=== PATIENT | female | born 1985 | race Two or more races ===

== ENCOUNTER 2020-06-02 17:42 | Inpatient (IN) | payer MEDICAID ==
[~2020-06-02] VITALS: Ht 61 cm; Wt 86.2 kg
[2020-06-02] MEDS ORDERED: levETIRAcetam 500mg/NS100ml 100 ML IVPB ONE (18:00)
[2020-06-02] MEDS ORDERED: levETIRAcetam 1,000mg/NS100ml 100 ML IVPB ONE (18:00)
--- NOTE | 2020-06-02 18:01 | Emergency Room Report ---
History of Present Illness General Chief Complaint: Seizure Source: Patient Present Illness HPI Disclaimer: Please note that this report is being documented using DRAGON technology. This can lead to erroneous entry secondary to incorrect interpretation by the dictating instrument. HPI: 35-year-old female history of seizure disorder status post WREATH MAKER shunt currently on Keppra presents for increased seizure activity. The patient states she had a brief generalized tonic-clonic seizure with a fall from standing prior to arrival. Brought in by her friend. She has been having increased seizures over the past 3 days. Her shunt was adjusted by her neurosurgeons last month after a CT showed increased intracranial pressure. She has been unable to take her Keppra or Klonopin for 3 days due to nausea. Reports headache and some blurred vision. Denies chest pain or palpitations. Denies nausea or vomiting or diarrhea. Denies fever or chills. 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 EOMI. no obvious hematomas or lacerations. Palpable shunt over the right side of the head and neck. Cardiovascular tachycardic Resp: Normal work of breathing. No cough, wheezing or crackles appreciated Abdomen: Abdomen is soft, nondistended. Nontender Skin: Intact. No abrasions, laceration or rash over the exposed skin MSK: Normal tone and bulk. Moving all extremities. No obvious deformity. Neuro: Awake and alert. Mentating appropriately. Tremulous in the extremities. Medical Decision Making Diagnostic Impression: Primary Impression: Seizure disorder Additional Impressions: Unable to take medication Headache ER Course Is a 35-year-old female history of seizure disorder status post WREATH MAKER shunt presents for evaluation of increasing seizures and headache after a fall from standing. Ventricles are decompressed and shunt appears to be in place. Labs are within normal limits. The patient complained of significant headache that was unaided by Tylenol or morphine. She received Benadryl Dilaudid which improved her headache. Benadryl was given for itching. Patient states she is allergic to NSAIDs, Reglan, Compazine. She also states she tried IV infusions of caffeine before which did not help. She takes morphine at home though cannot obtain records through [facility]. No prior visits at this hospital either. Because the patient is normally take her Keppra for the past 3 days will admit for further IV infusions and neurology consult that she no longer has a neurologist. Admitted to Dr. Corbin who is on panel today. Laboratory Tests Test 06/02/20 18:18 06/02/20 20:31 White Blood Count 4.6 K/UL (4.8-10.8) L Red Blood Count 3.98 M/UL (4.20-5.40) L Hemoglobin 8.2 G/DL (12.0-16.0) L Hematocrit 27.5 % (37.0-47.0) L Mean Corpuscular Volume 69 FL (80-99) L Mean Corpuscular Hemoglobin 20.5 PG (27.0-31.0) L Mean Corpuscular Hemoglobin Concent 29.7 G/DL (32.0-36.0) L Red Cell Distribution Width 17.9 % (11.6-14.8) H Platelet Count 320 K/UL (150-450) Mean Platelet Volume 7.5 FL (6.5-10.1) Neutrophils (%) (Auto) 59.9 % (45.0-75.0) Lymphocytes (%) (Auto) 30.1 % (20.0-45.0) Monocytes (%) (Auto) 7.2 % (1.0-10.0) Eosinophils (%) (Auto) 1.8 % (0.0-3.0) Basophils (%) (Auto) 1.1 % (0.0-2.0) Sodium Level 141 MMOL/L (136-145) Potassium Level 3.9 MMOL/L (3.5-5.1) Chloride Level 106 MMOL/L (98-107) Carbon Dioxide Level 26 MMOL/L (21-32) Anion Gap 9 mmol/L (5-15) Blood Urea Nitrogen 22 mg/dL (7-18) H Creatinine 0.7 MG/DL (0.55-1.30) Estimated Glomerular Filtration Rate > 60 mL/min (>60) Glucose Level 84 MG/DL (74-106) Calcium Level 8.8 MG/DL (8.5-10.1) Total Bilirubin 0.3 MG/DL (0.2-1.0) Aspartate Amino Transferase (AST) 15 U/L (15-37) Alanine Aminotransferase (ALT) 16 U/L (12-78) Alkaline Phosphatase 44 U/L (46-116) L Total Protein 7.3 G/DL (6.4-8.2) Albumin 3.6 G/DL (3.4-5.0) Globulin 3.7 g/dL Albumin/Globulin Ratio 1.0 (1.0-2.7) Serum Alcohol < 3 mg/dL Urine Color Pale yellow Urine Appearance Clear Urine pH 6.5 (4.5-8.0) Urine Specific [place] 1.005 (1.005-1.035) Urine Protein Negative (NEGATIVE) Urine Glucose (UA) Negative (NEGATIVE) Urine Ketones Negative (NEGATIVE) Urine Blood Negative (NEGATIVE) Urine Nitrite Negative (NEGATIVE) Urine Bilirubin Negative (NEGATIVE) Urine Urobilinogen Normal MG/DL (0.0-1.0) Urine Leukocyte Esterase Negative (NEGATIVE) Urine HCG, Qualitative Pending Urine Opiates Screen Pending Urine Barbiturates Screen Pending Phencyclidine (PCP) Screen Pending Urine Amphetamines Screen Pending Urine Benzodiazepines Screen Pending Urine Cocaine Screen Pending Urine Marijuana (THC) Screen Pending EKG Diagnostic Results Troponin ordered: Yes When was troponin ordered?: Jun 02, 2020 EKG Time: 17:59 Rate: normal Rhythm: NSR ST Segments: no acute changes Other Impression Sinus rhythm, normal axis, normal intervals, no ST segment changes Rhythm Strip Diag. Results Rhythm Strip Time: 17:59 EP Interpretation: yes Rate: 90s Rhythm: NSR, no PVC's, no ectopy Last Vital Signs Date Time Temp Pulse Resp B/P (MAP) Pulse Ox O2 Delivery O2 Flow Rate FiO2 06/02/20 17:45 98.4 111 20 103/69 (80) 100 Room Air Disposition: ADMITTED INPATIENT Condition: Serious Indio Benson MD Jun 02, 2020 18:01
[2020-06-02] MEDS ORDERED: Acetaminophen 500mg (ES) tab ORAL ONE (18:30)
[2020-06-02 18:33] LABS: BASOPHILS % (AUTO) 1.1 % (0.0-2.0); EOSINOPHILS % (AUTO) 1.8 % (0.0-3.0); HEMATOCRIT 27.5 % (37.0-47.0); HEMOGLOBIN 8.2 G/DL (12.0-16.0); LYMPHOCYTES % (AUTO) 30.1 % (20.0-45.0); MEAN CORPUSCULAR VOLUME 69 FL (80-99); MONOCYTES % (AUTO) 7.2 % (1.0-10.0); NEUTROPHILS % (AUTO) 59.9 % (45.0-75.0); PLATELET COUNT 320 K/UL (150-450); RED BLOOD COUNT 3.98 M/UL (4.20-5.40); RED CELL DISTRIBUTION WIDTH 17.9 % (11.6-14.8); WHITE BLOOD COUNT 4.6 K/UL (4.8-10.8)
[2020-06-02 18:43] LABS: ANION GAP 9 mmol/L (5-15); BLOOD UREA NITROGEN 22 mg/dL (7-18); CALCIUM 8.8 MG/DL (8.5-10.1); CARBON DIOXIDE 26 MMOL/L (21-32); CHLORIDE 106 MMOL/L (98-107); CREATININE 0.7 MG/DL (0.55-1.30); POTASSIUM 3.9 MMOL/L (3.5-5.1); SODIUM 141 MMOL/L (136-145)
[2020-06-02 18:47] LABS: ALANINE AMINOTRANSFERASE 16 U/L (12-78); ALBUMIN 3.6 G/DL (3.4-5.0); ALKALINE PHOSPHATASE 44 U/L (46-116); ASPARTATE AMINO TRANSFERASE 15 U/L (15-37); BILIRUBIN,TOTAL 0.3 MG/DL (0.2-1.0)
--- NOTE | 2020-06-02 18:58 | Diagnostic Imaging Report ---
EXAM: CT Head Without Intravenous Contrast CLINICAL HISTORY: SZ TECHNIQUE: Axial computed tomography images of the head/brain without intravenous contrast. CTDI is 53.40 mGy and DLP is 1018.80 mGy-cm. One or more of the following dose reduction techniques were used: automated exposure control, adjustment of the mA and/or kV according to patient size, use of iterative reconstruction technique. COMPARISON: No relevant prior studies available. FINDINGS: Brain: Punctate calcification in the right frontal lobe. No hemorrhage. No significant white matter disease. Ventricles: Calcification in the choroid plexus in the third ventricle and lateral ventricles. Bones/joints: Unremarkable. No acute fracture. Soft tissues: Unremarkable. Sinuses: Unremarkable as visualized. No acute sinusitis. Mastoid air cells: Unremarkable as visualized. No mastoid effusion. Tubes, lines and devices: Right parietal ventriculostomy catheter tip along the frontal horn right lateral ventricle. Ventricles are decompressed. IMPRESSION: 1. No acute intracranial pathology. 2. Right parietal ventriculostomy catheter tip along the frontal horn right lateral ventricle. Ventricles are decompressed.
[2020-06-02] MEDS ORDERED: Morphine Sulfate 2mg/ml Inj(IV/IM USE ONLY) IVP ONE (19:00)
--- NOTE | 2020-06-02 19:00 | NUR ---
ED Nurse Note: patient came in with complaints of increased pressure and pain on her right side of the head, pat is Aox4, ambulatory, hypotensive which she says is her normal, vitor has complaints of pain MD ordered medication
[2020-06-02] MEDS ORDERED: DiphenhydrAMINE 50mg/ml Inj IVP ONE ×2 (19:15→21:15)
--- NOTE | 2020-06-02 19:15 | NUR ---
ED Nurse Note: pt arrived for seizures x3 days. pt states nausea, unable to keep daily keppra down. pt states seizure since 19 after meningitis dx, pt had R ROTOFORMER BACKTENDER shunt placed years ago, recently adjusted pressure and ever since has felt pain & nausea. pt A&Ox4, slow movements, guarding. labs sent, CT done. pt medicated.
[2020-06-02 19:18] VITALS: BP 105/55
[2020-06-02] MEDS ORDERED: Haloperidol Lactate 5 MG in D5W 55 ML IVPB ONE (20:15)
[2020-06-02] MEDS ORDERED: Hydromorphone 0.5mg/0.5ml inj IVP ONE (20:30)
[2020-06-02] MEDS ORDERED: HYDROmorphone 1mg/ml Carpuject IVP ONE ×2 (20:30→21:00)
[2020-06-02 20:56] LABS: APPEARANCE,URINE CLEAR; BILIRUBIN, URINE NEGATIVE (NEGATIVE); COLOR,URINE PALE YELLOW; GLUCOSE, URINE (UA) NEGATIVE (NEGATIVE); KETONES,URINE NEGATIVE (NEGATIVE); LEUKOCYTE ESTERASE ,URINE NEGATIVE (NEGATIVE); NITRITE,URINE NEGATIVE (NEGATIVE); PH,URINE 6.5 (4.5-8.0); PROTEIN,URINE NEGATIVE (NEGATIVE); UROBILINOGEN,URINE NORMAL MG/DL (0.0-1.0)
[2020-06-02] MEDS ORDERED: KEPPRA1000 MG ORAL (21:28)
[2020-06-02] MEDS ORDERED: CYMBALTA60 MG ORAL (21:28)
[2020-06-02] MEDS ORDERED: KLONOPIN1 MG ORAL (21:28)
--- NOTE | 2020-06-02 22:40 | NUR ---
TRANSFER TO FLOOR: Patient transferred to 2nd floor tele as ordered, per MD. Belongings with patient.
--- NOTE | 2020-06-02 22:44 | NUR ---
NURSE NOTES: Pt. received from MANE Fletcher. Pt. ambulatory with steady gait, AAOx4, on room air, breathing even and unlabored on room air, no indications of respiratory distress, complaints of severe headache, and generalized pain 10/10. IV noted left AC 20g intact and patent and left EJ 20g intact and patent, saline locked. Shunt right parietal lobe palpated, pt. with complaints of pain and swelling at site. 97.7 - 104 sinus tachy on monitor - 18 RR - 110/58 - 99% RA - 10/10 pain. Pt oriented to room and hospital policies, belongings checked and accounted for against ED belongings list. Bed low and locked, side rails x2 up and padded, suction and o2 at bedside, and call light in reach. Will follow up with primary MD for admission orders.
--- NOTE | 2020-06-02 23:04 | NUR ---
NURSE NOTES: Dr. Corbin called for admission orders, anticipating return call.
[2020-06-02 23:33] VITALS: BP 90/58
--- NOTE | 2020-06-02 23:34 | NUR ---
NURSE NOTES: Message left for Dr. Corbin following up for admission orders. Pt. experiencing 10/10 pain related to seizures and fall at home, relayed in message to Dr. Corbin. Awaiting return call and admission orders. Charge nurse aware.
--- NOTE | 2020-06-02 23:52 | NUR ---
NURSE NOTES: Received admission orders from Dr. Gallegos, will carry out plan of care.
--- NOTE | 2020-06-03 00:10 | NUR ---
NURSE NOTES: Pt. with multiple complaints of pain 01/31 with headaches and generalized body pain, no relief. Discussed with pt. plan of care according to primary MD, including pain intervention orders. Pt. unhappy with not receiving Dilaudid for pain interventions and stated "Well then I'm leaving." Attempted to educate pt. on rational for orders per the MD and pt. refusing to listen. Pt. began packing up belongings and removing wash barrel leader. Discussed risks of leaving in current condition and potential for serious bodily harm. Pt. continued to pack up. Charge nurse alerted and MD notified. Brought AMA form and pt. refused to sign. D/c'd IV access, monitor removed, and ID band removed. Pt. escorted outside. Pt. AAOx4, ambulatory with steady gait, no signs of respiratory distress, no acute complaints of chest pain. Spoke with Dr. Corbin on the phone and updated on pt.s leaving AMA.
--- NOTE | 2020-06-04 00:14 | History and Physical Report ---
DATE OF ADMISSION: 06/02/2020 Please let this serve as H and P. The patient left a couple of hours after admission against medical advice, did not wait to be seen by any doctor, so obviously we could not do any History and Physical because the patient left AMA a couple of hours from the time of admission. The patient was originally admitted for seizures and neurologist was consulted, but the patient was insisting on getting some pain medication that, I told the nurse, will lower the seizure threshold and I did not feel comfortable giving it to the patient. The patient left against medical advice without waiting to be seen by any doctor, so we cannot dictate H and P, and let this serve as H and P. Monster Corbin M.D. DR: SUMEET JOB#: [id number] CC:
--- NOTE | 2020-06-05 14:57 | Discharge Summary ---
Discharge Summary Discharge Summary _ Date of admission: 06/02/2020 Patient left AGAINST MEDICAL ADVICE on 06/03/2020 History of Present Illness and Brief Hospital Course Ms. Hallman is a 35-year-old female with a medical history of seizure disorder on Keppra, and s/p SOCIAL MEDIA EXECUTIVE shunt, who presented to the ED for evaluation of increased seizure activity. Patient stated that she had a brief generalized tonic-clonic seizure with a fall from standing position. She was brought in by her friend. She had been having increasing seizure activities over the past 3 days. Patient's shunt was adjusted by her neurosurgeon last month after a CT showed increased intracranial pressure. Patient had been unable to take her Keppra or Klonopin for 3 days due to nausea. She reported headache and blurry vision but denied chest pain, palpitation, vomiting, or diarrhea. Patient was admitted to the hospital for further management. Her head CT was negative for acute intracranial pathology. The right parietal ventriculostomy catheter tip along the frontal horn right lateral ventricle was noted. Her ventricles were decompressed. She reported taking morphine at home but her records could not be obtained through [facility]. The patient continued to insist on getting some pain medication. Patient was educated that doing so would lower the seizure threshold. Patient left AGAINST MEDICAL ADVICE without waiting to be seen by any physician. Consultants: None Final diagnoses Seizure disorder, on Keppra s/p SOCIAL MEDIA EXECUTIVE shunt I have been assigned to dictate discharge summary for this account. I was not involved in the patient's management Dain Sanchez Jun 05, 2020 14:57
--- NOTE | 2020-06-05 15:23 | Cardiology Report ---
APPROVED REPORT EKG Measurement Heart [id number] <Conclusion> Normal sinus rhythm Normal ECG
== END 2020-06-03 00:10 | disposition left against medical advice (07) | DRG 53 ==
LOC: EMR 18:00 → 2E 21:25 → EDBEDREQ 21:53
DX: G40.909 Epilepsy, unspecified, not intractable, without status epilepticus (principal); R51.9 Headache, unspecified; Z88.6 Allergy status to analgesic agent; Z88.8 Allergy status to other drugs, medicaments and biological substances; Z98.2 Presence of cerebrospinal fluid drainage device
CPT/HCPCS: 36415; 70450; 80053; 80307; 81003; 81025; 85025; 93005; 96361; 96374; 96375; 96376; 99285; G0480; J2405; J7030